=== PATIENT | female | born 1995 ===

== ENCOUNTER 2017-11-05 08:47 | Emergency (ER) | payer OTHER ==
[2017-11-05 09:14] VITALS: BMI 32.3
--- NOTE | 2017-11-05 09:24 | OBHP ---
Datetime: 11/05/2017 09:19 IP Adm Impression: , intrauterine IP Chief Complaint Other: lower abdominal pin Admit Comment, IP Provider: at 33weeks camre with lower abdomen started yesterday, 08/19,no vb, lof+fm obhx 1 x pmh de med pnv llnkda psh de soch de ve closed a/p at 33weks lower abd pain ua cpnt vashti and efm cont close ob Pelvic Type - PN: Adequate Extremities - PN: Normal Abdomen - PN: Normal Back - PN: Normal Breast - PN: Normal Lungs - PN: Normal Heart - PN: Normal Thyroid - PN: Normal Neurologic - PN: Normal HEENT - PN: Normal General - PN: Normal FHR - Baseline A Provider: 130 Contraction Comments Provider: nomne Vital Signs Provider: Reviewed; Within Normal Limits NICHD Variability Prov Fetus A: Moderate 6-25bpm NICHD Accel Fetus A IP Provider: 15X15 NICHD Decel Fetus A IP Provider: None Genitourinary Exam: Normal DTRs - PN: Normal
[2017-11-05 09:52] LABS: SQUAMOUS EPITHIAL 8 /hpf (0-5); URINE BACTERIA RARE (<OCC); URINE BILIRUBIN NEGATIVE (NEGATIVE); URINE BLOOD NEGATIVE (NEGATIVE); URINE CLARITY Clear (Clear); URINE COLOR Straw (YELLOW); URINE GLUCOSE (UA) NORMAL (Normal); URINE LEUKOCYTE ESTERASE 3+ Leu/uL (Negative); URINE PROTEIN NEGATIVE (NEGATIVE); URINE UROBILINOGEN NORMAL mg/dL (0.2-1.0)
--- NOTE | 2017-11-05 10:20 | OBDCSUM ---
Datetime: 11/05/2017 10:18 Discharged to, Provider: Home Follow up at, Provider: 1we Follow up in weeks, Provider: clinic Discharge Comment, Provider: dc home mqacrobid ptl g po hy f/u Discharge Diagnosis Prov Other: 36we nst uti
--- NOTE | 2017-11-05 10:20 | OBHP ---
Datetime: 11/05/2017 09:19 Admit Comment, IP Provider: at 33weeks camre with lower abdomen started yesterday, 08/19,no vb, lof+fm obhx 1 x pmh de med pnv llnkda psh de soch de ve closed a/p at 33weks lower abd pain ua cpnt vashti and efm cont close ob ua 3 +le plan dc home mqacrobid ptl g po hy f/u
[2017-11-06 14:22] VITALS: BP 127/63; PULSE 85
== END 2017-11-05 10:27 | disposition home or self-care (01) ==
LOC: C.EROB 08:47
DX: O26.93 Pregnancy related conditions, unspecified, third trimester (principal); R10.9 Unspecified abdominal pain; Z3A.33 33 weeks gestation of pregnancy

== ENCOUNTER 2017-12-15 07:00 | Inpatient (IN) | payer OTHER ==
[2017-12-15 07:56] LABS: SQUAMOUS EPITHIAL < 1 /hpf (0-5); URINE BILIRUBIN NEGATIVE (NEGATIVE); URINE BLOOD NEGATIVE (NEGATIVE); URINE CLARITY Clear (Clear); URINE COLOR Straw (YELLOW); URINE GLUCOSE (UA) NORMAL (Normal); URINE LEUKOCYTE ESTERASE NEG Leu/uL (Negative); URINE PROTEIN NEGATIVE (NEGATIVE); URINE UROBILINOGEN NORMAL mg/dL (0.2-1.0)
[2017-12-15 08:00] LABS: BASO % 0.2 % (0.0-2.0); EOS # 0.3 K/uL (0.0-0.7); EOS % 3.4 % (0.0-4.0); HEMOGLOBIN 10.3 g/dL (11.0-16.0); LYMPH # 1.6 K/uL (1.0-4.3); LYMPH % 17.7 % (20.0-40.0); MEAN CELL VOLUME 83.2 fL (81.0-99.0); MEAN CORPUSCULAR HEMOGLOBIN 27.5 pg (27.0-31.0); MONO # 0.7 K/uL (0.0-0.8); MONO % 7.5 % (0.0-10.0); NEUT # 6.6 K/uL (1.8-7.0); NEUT % 71.2 % (50.0-75.0); RBC 3.76 Mil/uL (3.80-5.20); RED CELL DISTRIBUTION WIDTH 14.4 % (11.5-14.5); WHITE BLOOD COUNT 9.3 K/uL (4.8-10.8)
[2017-12-15 08:15] LABS: ALB/GLOB RATIO 1.4 (1.0-2.1); ALBUMIN 3.8 g/dL (3.5-5.0); ALT/SGPT 20 U/L (9-52); AST/SGOT 21 U/L (14-36); BLOOD UREA NITROGEN 9 mg/dL (7-17); GFR AFRICAN-AMERICAN > 60; GFR NON-AFRICAN AMERICAN > 60
[2017-12-15] MEDS ORDERED: Oxytocin 20 units in LR 2,000 ML IV ONE (08:28)
[2017-12-15] MEDS ORDERED: Sodium Citrate/Citric Acid 15 ml Sol ONE (08:28)
[2017-12-15] MEDS ORDERED: Oxytocin 10 Units/ml Inj ONE (08:30)
[2017-12-15] MEDS ORDERED: cefOXitin IV 2 gm in Saline 2 GM/50 ML BAG IVPB ONE (08:33)
[2017-12-15] MEDS ORDERED: Morphine 1 mg/ml preservative-free Inj(Duramorph) ONE (09:12)
[2017-12-15] MEDS ORDERED: cefOXitin IV 2 gm in Dextrose 2 GM/50 ML BAG IVPB ONE (09:30)
[2017-12-15] MEDS ORDERED: Sodium Citrate/Citric Acid 15 ml Sol PO ONE (09:30)
[2017-12-15] MEDS ORDERED: Lactated Ringer's 1,000 ML IV ONE (09:30)
--- NOTE | 2017-12-15 09:54 | OBHP ---
Datetime: 12/15/2017 08:00 IP Adm Impression: Term, intrauterine IP Admit Plan: Admit to unit; Initiate Section protocol Admit Comment, IP Provider: 22 yo female with an IUP at 39 3/7 weeks Here for scheduled Primary C/S secondary to Breech Presentation records reviewed and noted to have GBS Positive and ? Preeclampsia Pt denies any Hx of Preeclampsia and BP's throught her PNC visits were normal as well as here. Pr denies any VELASCO, BV or EP Bedside US confirmed Breech Presentation Will admit and Prep for Primary C/S Pelvic Type - PN: Adequate Extremities - PN: Normal Abdomen - PN: Normal Back - PN: Normal Breast - PN: Not Done Lungs - PN: Normal Heart - PN: Normal Thyroid - PN: Normal Neurologic - PN: Normal HEENT - PN: Normal General - PN: Normal Presentation-Admit: Breech FHR - Baseline A Provider: 140 Membranes, Provider: Intact Contraction Comments Provider: Ocassional Contractions Comments, ACOG Physical Exam: FH 38 Gestation - Est Wks by US: 39 3/7 EGA AdmitDate IP: 39.4 Vital Signs Provider: Reviewed; Within Normal Limits Vital Signs Provider Details: Records Reviewed IP Chief Complaint: Scheduled Section NICHD Variability Prov Fetus A: Moderate 6-25bpm NICHD Accel Fetus A IP Provider: 10X10 FHR Category Provider Fetus A: Category I NICHD Decel Fetus A IP Provider: None Dilatation, Provider: 0 Effacement, Provider: 50 Station, Provider: floating Genitourinary Exam: Normal DTRs - PN: Normal
--- NOTE | 2017-12-15 10:07 | CP.PCM.CON ---
<Yvon Anguiano - Last Filed: 12/15/17 10:17> History of Present Illness - History of Present Illness History of Present Illness: PGY3 Medicine Consult note for Dr. Ana Hobson CC: itchiness of lower extremities FULL CODE This patient is a 22yo F who is here to give . This consult is being placed for itchy lower extremities, abdomen, and upper extremities. She states that she has never had this rash before. She states it started 2 weeks ago once she started a different brand of vitamins. She denies any travel, time in the park/outside, new detergent/creams/washes/shampoos, no one else in the house has the rash, no animals in the house or animal contact. This has never happened to her before. She has not tried anything to alleviate the rash. PMHx: gestational hypertension, GBS+ PSurgHx: C-Sectionx2 Meds: Vitamins Allergies: denies social: denies etoh/smoking, independent in all ADL/IADL Past Patient History - Infectious Disease Hx of Infectious Diseases: None - Past Social History Smoking Status: Never Smoked - PSYCHIATRIC Hx Substance Use: No - SURGICAL HISTORY Hx Surgeries: No - ANESTHESIA Hx Anesthesia: No Meds Allergies/Adverse Reactions: Allergies Allergy/AdvReac Type Severity Reaction Status Date / Time No Known Allergies Allergy Verified 10/09/16 20:08 - Medications Medications: Current Medications Hydrocortisone (Cortizone 2.5%) 1 gm TOP BID MONSERRAT Lactated Ringer's (Lactated Ringer's) 1,000 mls @ 999 mls/hr IV .Q1H1M ONE Last Admin: 12/15/17 08:54 Dose: 999 mls/hr Physical Exam - Constitutional Appears: Well, Non-toxic Additional comments: /gravid abdomen - Head Exam Head Exam: ATRAUMATIC, NORMAL INSPECTION - Eye Exam Eye Exam: EOMI, PERRL. absent: Scleral icterus - ENT Exam ENT Exam: Mucous Membranes Moist - Neck Exam Neck exam: Positive for: Full Rom. Negative for: Lymphadenopathy, Meningismus - Respiratory Exam Respiratory Exam: Clear to Auscultation Bilateral, NORMAL BREATHING PATTERN. absent: Rhonchi, Wheezes, Respiratory Distress - Cardiovascular Exam Cardiovascular Exam: REGULAR RHYTHM, +S1, +S2. absent: Systolic Murmur - GI/Abdominal Exam GI & Abdominal Exam: Normal Bowel Sounds, Soft. absent: Tenderness ( abdomen with + movement, striae, follicular irritation/redness ) - Extremities Exam Extremities exam: Positive for: full ROM (There are red, itchy, follicular based erythematous lesions on b/l lower extremities, excoriated ). Negative for : calf tenderness - Back Exam Back exam: NORMAL INSPECTION. absent: CVA tenderness (L), CVA tenderness (R) - Neurological Exam Neurological exam: Alert, CN II-XII Intact, Oriented x3 Results - Labs Result Diagrams: 12/15/17 07:48 12/15/17 07:48 Labs: Laboratory Results - last 24 hr 12/15/17 12/15/17 12/15/17 07:48 07:48 07:48 WBC 9.3 RBC 3.76 L Hgb 10.3 L Hct 31.3 L MCV 83.2 MCH 27.5 MCHC 33.0 RDW 14.4 Plt Count 113 L MPV 11.0 Neut % (Auto) 71.2 Lymph % (Auto) 17.7 L Brooke % (Auto) 7.5 Eos % (Auto) 3.4 Baso % (Auto) 0.2 Neut # (Auto) 6.6 Lymph # (Auto) 1.6 Brooke # (Auto) 0.7 Eos # (Auto) 0.3 Baso # (Auto) 0.0 Sodium 138 Potassium 3.7 Chloride 106 Carbon Dioxide 25 Anion Gap 11 BUN 9 Creatinine 0.5 L Est GFR ( Amer) > 60 Est GFR (Non-Af Amer) > 60 Random Glucose 85 Calcium 9.0 Total Bilirubin 0.2 AST 21 ALT 20 Alkaline Phosphatase 96 Total Protein 6.5 Albumin 3.8 Globulin 2.7 Albumin/Globulin Ratio 1.4 Urine Color Straw Urine Clarity Clear Urine pH 7.0 Ur Specific [place] 1.009 Urine Protein Negative Urine Glucose (UA) Normal Urine Ketones Negative Urine Blood Negative Urine Nitrate Negative Urine Bilirubin Negative Urine Urobilinogen Normal Ur Leukocyte Esterase Neg Urine WBC (Auto) < 1 Urine RBC (Auto) < 1 Ur Squamous Epith Cells < 1 Blood Type Antibody Screen 12/15/17 07:48 WBC RBC Hgb Hct MCV MCH MCHC RDW Plt Count MPV Neut % (Auto) Lymph % (Auto) Brooke % (Auto) Eos % (Auto) Baso % (Auto) Neut # (Auto) Lymph # (Auto) Brooke # (Auto) Eos # (Auto) Baso # (Auto) Sodium Potassium Chloride Carbon Dioxide Anion Gap BUN Creatinine Est GFR ( Amer) Est GFR (Non-Af Amer) Random Glucose Calcium Total Bilirubin AST ALT Alkaline Phosphatase Total Protein Albumin Globulin Albumin/Globulin Ratio Urine Color Urine Clarity Urine pH Ur Specific [place] Urine Protein Urine Glucose (UA) Urine Ketones Urine Blood Urine Nitrate Urine Bilirubin Urine Urobilinogen Ur Leukocyte Esterase Urine WBC (Auto) Urine RBC (Auto) Ur Squamous Epith Cells Blood Type O POSITIVE Antibody Screen Negative Assessment & Plan - Assessment and Plan (Free Text) Assessment: 22yo F admitted for , complaining of itchy lower extremities Induced Folliculitis -supportive care -2.5% hydrocortisone cream BID as needed in a thin layer to affected areas -keep area clean/dry otherwise -no shaving/hair removal until resolves -patient does have GBS; will order blood cultures and Penicillin G 5M units now and 2.5M unites Q4H Thank you for this interesting consult We will sign off for now; feel free to re-consult as needed Yvon Anguiano PGY3 for Dr. Phuc Hobson <Phuc Hobson - Last Filed: 12/18/17 20:19> Results - Vital Signs Recent Vital Signs: Last Vital Signs Temp 97.4 F L 12/18/17 08:00 Pulse 86 12/18/17 08:00 Resp 18 12/18/17 08:00 BP 127/69 12/18/17 08:00 Pulse Ox 98 12/18/17 08:00 - Labs Result Diagrams: 12/18/17 11:33 12/15/17 07:48 Labs: Laboratory Results - last 24 hr 12/18/17 11:33 WBC 11.0 H RBC 3.58 L Hgb 9.8 L Hct 29.8 L MCV 83.3 MCH 27.4 MCHC 32.9 L RDW 15.1 H Plt Count 156 MPV 11.1 Neut % (Auto) 72.5 Lymph % (Auto) 15.7 L Brooke % (Auto) 7.8 Eos % (Auto) 3.6 Baso % (Auto) 0.4 Neut # (Auto) 8.0 H Lymph # (Auto) 1.7 Brooke # (Auto) 0.9 H Eos # (Auto) 0.4 Baso # (Auto) 0.0 Attending/Attestation - Attestation I have personally seen and examined this patient.: Yes I have fully participated in the care of the patient.: Yes I have reviewed all pertinent clinical information: Yes Notes (Text): 12/18/17 20:18 This is a late entry. Patient was seen right before she was about to go into C -section Plan discussed with Dr. Manuel and Resident Dr. Yvon Hobson D.O.
--- NOTE | 2017-12-15 10:08 | OBADHP ---
Datetime: 12/15/2017 08:30 Admit Comment, IP Provider: 39 3/7 weeks in Breech Presentation Scheduled for Primary C/S Procedure, risks and possible complications reviewed with patient and she requested to proceed and signed the consent Anesthesia and Pediatrics aware Labs reviewed as well as PNC records Trade Analyst aware of + GBS Pelvic Type - PN: Adequate Extremities - PN: Normal Abdomen - PN: Normal Back - PN: Normal Breast - PN: Not Done Lungs - PN: Normal Heart - PN: Normal Thyroid - PN: Normal Neurologic - PN: Normal HEENT - PN: Normal General - PN: Normal Presentation-Admit: Breech Membranes, Provider: Intact IP Chief Complaint: Scheduled Section FHR Category Provider Fetus A: Category I Genitourinary Exam: Normal DTRs - PN: Normal EGA AdmitDate IP: 39.4 IP Adm Impression: Term, intrauterine ; Intact Membranes IP Admit Plan: Admit to unit; Initiate Section protocol Datetime: 12/15/2017 08:00 FHR - Baseline A Provider: 140 Contraction Comments Provider: Ocassional Contractions Comments, ACOG Physical Exam: FH 38 Gestation - Est Wks by US: 39 3/7 Vital Signs Provider: Reviewed; Within Normal Limits Vital Signs Provider Details: Records Reviewed NICHD Variability Prov Fetus A: Moderate 6-25bpm NICHD Accel Fetus A IP Provider: 10X10 NICHD Decel Fetus A IP Provider: None Dilatation, Provider: 0 Effacement, Provider: 50 Station, Provider: floating Datetime: 11/05/2017 09:19 IP Chief Complaint Other: lower abdominal pin
[2017-12-15] MEDS ORDERED: Penicillin G Potassium 5 MU in Dextrose 5% In Water 50 ML IV ONE (10:16)
[2017-12-15 10:20] LABS: URIC ACID 2.7 mg/dL (2.2-7.5)
[2017-12-15] MEDS ORDERED: Penicillin G 5 Million Unit Vial IVPB ONE (10:20)
[2017-12-15] MEDS ORDERED: Oxycodone/Acetaminophen 5/325 mg Tab PO PRN (11:49)
--- NOTE | 2017-12-15 13:20 | OBDS ---
DELIVERY PERSONNEL Delivery Doctor: Kaleb garcía Scrub Nurse: Brie Tinsley Butadiene Compressor Operator: Meme Campbell RN Anesthesiologist: Lauri garcía MATERNAL INFORMATION Delivery Anesthesia: Spinal Medications in Delivery: pitocin 20 Placenta Cultured: Yes Maternal Complications: None Provider Comments: Primary LTC C/S with delivery of a viable female from [facility]. Apgars 9 and 9 and BW 8lbs, 3oz. No complications Placenta complet and intact and sent to Pathology Cord blood also sent. Bilateral Tubes and Ovaries WNL EBL 600 mls Pt and both tolerated the procedure well and left the OR in Stable and Satisfactory condit ion. LABOR SUMMARY EDC: 12/18/2017 00:00 No. Babies in Womb: 1 Attempted: No Labor Anesthesia: None LABOR INFORMATION Reason for Induction: Not Applicable Oxytocin: N/A Group B Beta Strep: Positive Antibiotics # of Doses: 2 Antibiotics Time of Last Dose: 1030 Steroids Given: None Reason Steroids Not Administered: Not Applicable MEMBRANES Membranes Rupture Method: Artificial Rupture of Membranes: 12/15/2017 10:53 Length of Rupture (hrs): 0.02 Amniotic Fluid Color: Clear Amniotic Fluid Amount: Moderate Amniotic Fluid Odor: Normal STAGES OF LABOR Stage 3 hrs: 0 Stage 3 min: 1 CSECTION DELIVERY Primary Indication: c/s Secondary Indication: N/A CSection Urgency: Elective CSection Incidence: Primary Labor: No Labor Elective: Elective CSection Incision: Lower Uterine Transverse Uterine Closure: Single-layer closure BABY A INFORMATION Infant Delivery Date/Time: 12/15/2017 10:54 Method of Delivery: Born in Route : No : N/A Forceps: N/A Vacuum Extraction: N/A Shoulder Dystocia : No SHOULDER DYSTOCIA BABY A Infant Delivery Date/Time: 12/15/2017 10:54 PRESENTATION/POSITION BABY A Presentation: Breech Breech Presentation: [place] PLACENTA INFORMATION BABY A Placenta Delivery Time : 12/15/2017 10:55 Placenta Method of Delivery: Expressed Placenta Status: Delivered SCORES BABY A Heart Rate 1 min: >100 bpm Resp Effort 1 min: Good Cry Reflex Irritability 1 min: Cough or Sneeze or Pulls Away Muscle Tone 1 min: Active Motion Color 1 min: Body [place], Extremities Blue Resuscitation Effort 1 min: Tactile Stimulation SCORE 1 MIN: 9 Heart Rate 5 min: >100 bpm Resp Effort 5 min: Good Cry Reflex Irritability 5 min: Cough or Sneeze or Pulls Away Muscle Tone 5 min: Active Motion Color 5 min: Body [place], Extremities Blue SCORE 5 MIN: 9 INFANT INFORMATION BABY A Gestational Age at Delivery: 39.4 Gestational Status: Term Outcome : Liveborn Infant Condition : Stable Sex: Female IDENTIFICATION/MEDS BABY A ID Band Number: [id number] ID Band Location: Left Leg; Left Arm Sensor Applied: Yes Sensor Number: [id number] Sensor Location : Cord Clamp WEIGHT/LENGTH BABY A Birthweight (gms): 3710 Infant Weight (lb): 8 Infant Weight (oz): 3 Length Inches: 19.00 Length cms: 48.3 CORD INFORMATION BABY A No. Cord Vessels: 3 Nuchal Cord : N/A Cord Blood Taken: Yes Suction: Mouth ASSESSMENT BABY A Infant Complications: None Physical Findings at Delivery: Within Normal Limits Infant Respirations: Appears Normal Editing Intern/ALS Called : No Care By: dr kang Transferred To: Remains with Mother
[2017-12-15] MEDS ORDERED: Penicillin G Potassium 2.5 MU in Dextrose 5% In Water 50 ML IV SCH (14:30)
[2017-12-15] MEDS: Penicillin G Potassium 2.5 MU in Dextrose 5% In Water 50 ML IV SCH ×3 (14:50→21:58)
[2017-12-15] MEDS: Simethicone 80 mg Chewtab PO SCH ×3 (14:57→21:29)
[2017-12-15] MEDS: Hydrocortisone 2.5% Oint (20 gm) TOP SCH (20:16)
[2017-12-16] MEDS: Penicillin G Potassium 2.5 MU in Dextrose 5% In Water 50 ML IV SCH ×6 (02:36→21:55)
[2017-12-16] MEDS: Oxycodone/Acetaminophen 5/325 mg Tab PO PRN ×4 (07:07→22:07)
[2017-12-16 08:41] LABS: HEMOGLOBIN 10.8 g/dL (11.0-16.0); MEAN CELL VOLUME 82.6 fL (81.0-99.0); MEAN CORPUSCULAR HEMOGLOBIN 27.3 pg (27.0-31.0); MEAN PLATELET VOLUME 11.5 fL (7.2-11.7); RBC 3.94 Mil/uL (3.80-5.20); RED CELL DISTRIBUTION WIDTH 14.6 % (11.5-14.5); WHITE BLOOD COUNT 13.7 K/uL (4.8-10.8)
[2017-12-16] MEDS: Prenatal Multivit/Folic Acid/Iron Tab PO SCH (09:33)
[2017-12-16] MEDS: Simethicone 80 mg Chewtab PO SCH ×4 (09:33→21:53)
[2017-12-16] MEDS: Hydrocortisone 2.5% Oint (20 gm) TOP SCH ×2 (09:35→18:21)
--- NOTE | 2017-12-16 11:27 | OBPPN ---
Datetime: 12/16/2017 11:03 PP Pain Prov: Within normal limits PP Nausea Prov: Denies PP Flatus Prov: No PP BM Prov: No PP Breasts Prov: Normal PP Heart Prov: Normal PP Lungs Prov: Normal PP Abdomen/Uterus Prov: Normal PP Lochia Prov: Normal PP Vulva/Perineum Prov: Not Done PP CVA Tenderness Prov: Normal PP Extremities Prov: Normal PP C/S Incision Prov: Not Applicable PP Progress Prov: Normal PP Comments Phys Exam Prov: Breasts: no cracked nipples Abdomen: (+) BS. Soft. Obese. Dressing removed; incision with stabple - clean, dry and intact. fun dus firm, mild and appropriately tender, firm, mobile, at umbilicus. Mild lochia rubra. 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 lower: bilateral, diffuse, erythemato us, macular rash; healing excoriations noted. No calf tenderness; no edema All other systems reviewed and are negative PP Impression Prov: Normal progression PP Plan Prov: Continue present management PP Progress Note Prov: Patient received in room 455, sitting up in chair - in good spirits. (-) flat us; (-)BM. Ambulating and voiding. Denies dizziness, lightheadedness, nausea or vomiting. Reports ra sh is improving - not as itchy P.E.: as above. Obese, in NAD. Awake, alert, oriented to time, person and place, Pleasant and group sales coordinator perative - POD#1 H/H 10.8/32.6. Rh(+) Assessment: POD#1 22 y.o P2012, S/P primary C/S for Breech presentation. Returning GI and funct ions. Afebrile, vital sgns stable. Medicine also following for skin rash - aetiology unclear: input a nd treatment much appreciated. Patient encouraged to ambulate in the hallways. Clinically stable. Plan: 1) Continue topical steroids and penicilin as per Medicine 2) Continue post op care Vital Signs Provider PP: Reviewed; Within Normal Limits
[2017-12-16] MEDS ORDERED: Bisacodyl 5mg EC Tab PO ONE (11:50)
[2017-12-17] MEDS: Penicillin G Potassium 2.5 MU in Dextrose 5% In Water 50 ML IV SCH ×2 (02:24→06:43)
[2017-12-17] MEDS: Oxycodone/Acetaminophen 5/325 mg Tab PO PRN ×4 (04:12→20:56)
--- NOTE | 2017-12-17 07:47 | OBPPN ---
Datetime: 12/17/2017 07:40 PP Pain Prov: Within normal limits PP Nausea Prov: Denies PP Flatus Prov: Yes PP BM Prov: No PP Heart Prov: Normal PP Lungs Prov: Normal PP Abdomen/Uterus Prov: Normal PP Lochia Prov: Normal PP Extremities Prov: Normal PP C/S Incision Prov: Normal PP Impression Prov: Normal progression PP Plan Prov: Continue present management PP Progress Note Prov: pt was seen at bed side, pain under control,no n.v, tolerating regular diet, passing flatus, having BM, locia improving, ambulating without difficulty. Incision site dry, clean a nd healing well. pod#2 s/p c/s for breech cont pain ma obnt post op care encourage ambulation Can shower Vital Signs Provider PP: Reviewed; Within Normal Limits
[2017-12-17] MEDS: Hydrocortisone 2.5% Oint (20 gm) TOP SCH ×2 (09:48→17:24)
[2017-12-17] MEDS: Simethicone 80 mg Chewtab PO SCH ×3 (09:48→17:25)
[2017-12-17] MEDS: Prenatal Multivit/Folic Acid/Iron Tab PO SCH (09:51)
[2017-12-18] MEDS: Oxycodone/Acetaminophen 5/325 mg Tab PO PRN (02:08)
[2017-12-18 08:34] VITALS: BP 127/69; PULSE 86; RESP 18; TEMP 97.4; O2SAT 98
[2017-12-18] MEDS: Prenatal Multivit/Folic Acid/Iron Tab PO SCH (10:58)
[2017-12-18] MEDS: Hydrocortisone 2.5% Oint (20 gm) TOP SCH (10:59)
[2017-12-18] MEDS: Simethicone 80 mg Chewtab PO SCH ×2 (10:59→13:28)
[2017-12-18 11:41] LABS: BASO % 0.4 % (0.0-2.0); EOS # 0.4 K/uL (0.0-0.7); EOS % 3.6 % (0.0-4.0); HEMOGLOBIN 9.8 g/dL (11.0-16.0); LYMPH # 1.7 K/uL (1.0-4.3); LYMPH % 15.7 % (20.0-40.0); MEAN CELL VOLUME 83.3 fL (81.0-99.0); MEAN CORPUSCULAR HEMOGLOBIN 27.4 pg (27.0-31.0); MEAN CORPUSCULAR HGB CONC 32.9 g/dL (33.0-37.0); MEAN PLATELET VOLUME 11.1 fL (7.2-11.7); MONO # 0.9 K/uL (0.0-0.8); MONO % 7.8 % (0.0-10.0); NEUT % 72.5 % (50.0-75.0); RBC 3.58 Mil/uL (3.80-5.20); RED CELL DISTRIBUTION WIDTH 15.1 % (11.5-14.5)
[2017-12-18] MEDS ORDERED: Magnesium Hydroxide Susp 30 ml UD PO ONE ×2 (11:48→13:30)
--- NOTE | 2017-12-18 13:03 | CP.PCM.PCO ---
Physician Communication Note - Physician Communication Note Physician Communication Note: Please see above
--- NOTE | 2017-12-18 18:07 | OBDCSUM ---
Datetime: 12/18/2017 08:37 Discharged to, Provider: Home Follow up at, Provider: rashid Key Instr Activity: Normal activity Disch Instr Diet: Regular Discharge Instructions, Provider: Routine instructions given Discharge Diagnosis, Provider: Term Delivered Discharge Time: 12/18/2017 15:00 Follow up in weeks, Provider: 12-22-17 Disch Referrals: None Contraception discussed, Prov: No Disch Activity Restrictions: No lifting; Minimize stair-climbing; No sexual activity; Nothing in vag danilo - [place], tampons, douche Discharge Diagnosis Prov Other: Breech presentation Acute blood loss anemia Atopic dermatitis Status post primary section
--- NOTE | 2017-12-18 18:07 | OBPPN ---
Datetime: 12/18/2017 17:45 PP Pain Prov: Within normal limits PP Nausea Prov: Denies PP Flatus Prov: No PP BM Prov: No PP Breasts Prov: Normal PP Heart Prov: Normal PP Lungs Prov: Normal PP Abdomen/Uterus Prov: Normal PP Lochia Prov: Normal PP Vulva/Perineum Prov: Not Done PP CVA Tenderness Prov: Normal PP Extremities Prov: Abnormal PP Comments Phys Exam Prov: Breasts: no cracked nipples Extremities: upper - newly recurred macular-papular rash on upper extremities; (+) excoriations - healed. Lower - more healed macular rash. No calf tenderness, trace pedal edema bilaterally All other systems reviewed and are negative PP Impression Prov: Normal progression PP Plan Prov: Discharge PP Progress Note Prov: Patient predominantly Khmer- speaking. Translaiton provided by PGY-1 Dr. César Mendosa Patieint was evaluated at approximately 1100 hours. Received in room 455, breastfeeidng; FOB prese nt. Patient in relatively good spirits. Reports no BM and c/o gas pains. Denies nausea, vomiting; adm its to mildly decreased appetite. Reports ambulaitng and voiding without difficulty. Desires to go ho me Re:rash - returned this morning after apparently resolved yesterday. This moring, (+) itcihng; cur rently, no itching P.E.: as above. Obese, in NAD. Awake, alert, oriented to time, person and place. Pleasant and community engagement coordinator perative - POD#3, H/H 9.8/29.8. Rh(+) Blood cultures negative to date Assessment: POD#3, 22 y.o. P2012, S/P primary LTCS for breech presentation. Afebrile, vital signs stable. 1) GI. No flatus. In the setting of mild abdomnal distension and decreased appetite, D/W paitent w ill continue to observe for flatus before approving discharge home. Patient encouraged to ambulate. W ill administer cathartic, upon patient's request. 2) Re: rash. Reconsult Medicine. Dermatology consultation services not available. Addendum: 1) Patient was seen by Dr. Phuc Hobson. Probable atopic dermatitis most likely related to close- fitting clothing irritated by sweating. Patient has been cleared for discharge with topical steroid, advise on how to dress and to follow up with technical producer (contact information provided patientt) 2) Notified by R.N., patient has paseed flatus. Both patient and are comfortable with her going home. Patient counseled to eat smaller portioned meals at more frequent intervals. Instructio ns also given to return to E.D. for GI symptoms that are concerning. Plan: 1) Discharge patient home 2) See full discharge instructions Vital Signs Provider PP: Reviewed; Within Normal Limits
== END 2017-12-18 16:35 | disposition home or self-care (01) | DRG 370 ==
LOC: C.EROB 07:00 → C.4D 07:40 → C.4M 14:05
PROVIDERS: ADMIT Obstetrics & Gynecology; ATTEND Obstetrics & Gynecology
PROC: 10D00Z1 Extraction of Products of Conception, Low, Open Approach (ICD-10-PCS; principal; 2017-12-15)
DX: O32.1XX0 Maternal care for breech presentation, not applicable or unspecified (principal); O99.02 Anemia complicating childbirth; D62 Acute posthemorrhagic anemia; Z3A.39 39 weeks gestation of pregnancy; O99.824 Streptococcus B carrier state complicating childbirth; O99.214 Obesity complicating childbirth; E66.9 Obesity, unspecified; Z68.35 Body mass index [BMI] 35.0-35.9, adult; L20.9 Atopic dermatitis, unspecified; Z37.0 Single live birth